=== PATIENT | male | born 1960 | race Caucasian/White ===

== ENCOUNTER 2020-01-13 08:30 | Day surgery (SDC) | payer OTHER ==
[2020-01-08 17:46] VITALS: BMI 25.0
[~2020-01-13 08:30] MED LIST: DEXAMETHASONE SOD PHOSPHATE 10 MG/ML 1 ML VIAL IV ONE; HEPARIN SODIUM,PORCINE 5,000 UNIT/ML 1 ML VIAL SQ ONE; HYDROmorphone 0.5 MG/0.5 ML SYRINGE IVP PRN; LACTATED RINGERS 1,000 ML IV SCH; LIDOCAINE 1% (10MG/ML) FOR IV START INTRADERMA PRN; MIDAZOLAM 2 MG/2 ML VIAL IV PRN; ONDANSETRON 4 MG/2 ML VIAL IVP ONE; Pre Op ABX Message 1 EACH MISC MISCELLANE ONE; fentaNYL (PF) 50 MCG/ML 2 ML AMP IVP PRN
[2020-01-13 08:48] VITALS: TEMP 97
--- NOTE | 2020-01-13 08:54 | P.GSHP ---
History of Present Illness H&P Date: 01/13/20 Chief Complaint: Abdominal wall lipoma Is a 59-year-old male developed a 5 cm lipoma in the epigastric area. Patient's lipomas firm and nontender. He presents today for excision Past Medical History Past Medical History: GERD/Reflux Additional Past Medical History / Comment(s): abdominal wall lipoma History of Any Multi-Drug Resistant Organisms: None Reported Past Surgical History: No Surgical Hx Reported Additional Past Surgical History / Comment(s): colonoscopy Past Anesthesia/Blood Transfusion Reactions: No Reported Reaction Additional Past Anesthesia/Blood Transfusion Reaction / Comment(s): HAS NEVER RECEIVED ANESTHESIA Smoking Status: Never smoker - Past Family History Mother Family Medical History: No Reported History Medications and Allergies Home Medications Medication Instructions Recorded Confirmed Type L.acidoph,Paracasei, B.lactis 1 each PO DAILY 01/08/20 01/08/20 History [Probiotic] Multivitamins, Thera [Multivitamin 1 tab PO DAILY 01/08/20 01/08/20 History (formulary)] Omeprazole [PriLOSEC] 20 mg PO [id number] 01/08/20 01/13/20 History Allergies Allergy/AdvReac Type Severity Reaction Status Date / Time Iodine and Iodide Containing Allergy Anaphylaxis Verified 01/13/20 08:42 Produc shrimp Allergy Anaphylaxis Verified 01/13/20 08:42 Surgical - Exam Vital Signs Temp Pulse Resp BP Pulse Ox 97.0 F L 64 17 155/96 99 01/13/20 08:47 01/13/20 08:47 01/13/20 08:47 01/13/20 08:47 01/13/20 08:47 - General well developed, well nourished, no distress - Eyes PERRL - ENT normal pinna - Neck no masses - Respiratory normal expansion - Cardiovascular Rhythm: regular - Abdomen Abdomen: soft, non tender - Integumentary 5 cm lipoma in the left epigastric area. Assessment and Plan Assessment: Abdominal wall lipoma. We'll perform excision.
[2020-01-13] MEDS ORDERED: SODIUM CHLORIDE 0.9% 50 ML with ceFAZolin 1,000 MG IV ONE ×4 (09:00)
[2020-01-13] MEDS ORDERED: PROPOFOL 10 MG/ML 20 ML VIAL IV ONE (09:01)
[2020-01-13] MEDS ORDERED: KETOROLAC 30 MG/ML 1 ML VIAL ONE (09:01)
[2020-01-13] MEDS ORDERED: fentaNYL (PF) 50 MCG/ML 2 ML AMP ONE (09:01)
[2020-01-13] MEDS ORDERED: MIDAZOLAM 2 MG/2 ML VIAL ONE (09:01)
[2020-01-13] MEDS ORDERED: BUPIVACAINE (PF) 0.5% 30 ML VIAL SQ ONE (09:22)
[2020-01-13 10:09] VITALS: RESP 18
--- NOTE | 2020-01-13 10:27 | P.OP ---
Date of Procedure: 01/13/20 Preoperative Diagnosis: Left upper quadrant lipoma abdominal wall Postoperative Diagnosis: Abdominal wall lipoma Procedure(s) Performed: Excision of abdominal wall lipoma Anesthesia: MAC Surgeon: Kenyon Campo Estimated Blood Loss (ml): 5 Pathology: other (Abdominal wall lipoma) Condition: stable Disposition: PACU Description of Procedure: The patient's placed on the operating table in the supine position. He received IV sedation. His abdomen was prepped and draped usual fashion. In the left upper quadrant there was a 10 cm abdominal wall lipoma. The skin was incised after local anesthetic. Using left cautery and sharp dissection the abdominal wall lipoma was dissected free. The specimens of pathology. This was measured prostate 10 x 4 x 10 cm. The wound was a few cc. Skin was closed interrupted 3-0 Monocryl suture. Dermabond was applied. Patient top she will was sent to recovery room stable condition.
[2020-01-13 10:34] VITALS: BP 148/90; PULSE 67
== END 2020-01-13 10:44 | disposition home or self-care (01) ==
LOC: OR 08:30
PROVIDERS: ATTEND Surgery
DX: D17.1 Benign lipomatous neoplasm of skin and subcutaneous tissue of trunk (principal); K21.9 Gastro-esophageal reflux disease without esophagitis; Z79.899 Other long term (current) drug therapy; Z91.048 Other nonmedicinal substance allergy status; Z91.013 Allergy to seafood
CPT/HCPCS: 88304; 22903; J2250; J0690; J3010; J1885; J2704

== ENCOUNTER 2023-09-12 19:21 | Outpatient (CLI) | payer OTHER ==
--- NOTE | 2023-09-17 23:04 | SLS ---
SLEEP STUDY STUDY PERFORMED: This is a CPAP titration report. HISTORY OF PRESENT ILLNESS: This patient was diagnosed having severe symptomatic obstructive sleep apnea with an AHI of 57.4. The patient is presenting to undergo a CPAP titration. PERTINENT PHYSICAL FINDINGS: Height is 5 feet 4 inches, weight is 173, BMI 29.7. TECHNICAL DESCRIPTION: The sleep evaluation of the patient consisted of clinical polysomnography, nocturnal respiratory battery, left and right anterior tibialis surface electromyography. The standard montage for the clinical polysomnography included the EEG, EOG, EMG, and EKG. Respiratory battery included measurements of nasal/buccal airflow, thoracic, and/or abdominal effort and intercostal surface EMG. Nocturnal oxyhemoglobin saturations were obtained by finger oximetry. Digital video and audio monitoring were done throughout the entire night to check or parasomnias. Step-mccauley titration with positive airway pressure was utilized during the study to control the respiratory events. SLEEP ARCHITECTURE: Total time in bed was 439 minutes. Total sleep time 339.5 minutes and overall sleep efficiency was 77.2%. Latency to sleep onset was 5.5 minutes. Latency to REM sleep was 63.5 minutes and the wake after sleep onset time was 96.5 minutes. The sleep architecture was characterized by 3.5% stage I, 75.8% stage II, 0% stage III, and 21.3% REM sleep. SLEEP CONTINUITY AROUSAL: The patient had a total of 22 arousals with an index of 3.9. Respiratory arousal index was 0.2. PERIODIC LIMB MOVEMENT ACTIVITY: None. CARDIAC SUMMARY: Average heart rate was 73, minimum heart rate was 69 and maximum heart rate was 81. CPAP TITRATION SUMMARY: The patient was started on a CPAP pressure of 5 cm of water and pressure was gradually increased by increments of 1 cm to reach a maximum pressure of 9 cm of water. I carefully reviewed the CPAP titration taking into account the patient's sleep stage and body position. The patient assumed various body positions. The patient was studied in supine and non-supine body position. All sleep stages were encountered, including REM. The patient has successful titration at a target pressure of 9 cm of water. No significant obstructive respiratory events were noted. This was a successful titration. PLAN: 1. Encourage weight loss. 2. Initiate CPAP therapy at a pressure of 9 cm of water with C-flex of 3 and offer the patient an AirFit F20 medium-size fullface mask. 3. Optimize sleep hygiene measures. 4. See me back in the office in 30 to 90 days to assess clinical response and compliance. He will make further adjustments on CPAP therapy accordingly. Anticipate an improvement in sleep quality while on CPAP therapy. We will continue to follow. ANAIS / JOANN: [id number] /
== END 2023-09-13 05:20 | disposition home or self-care (01) ==
LOC: 3 N SLEEP 19:21
PROVIDERS: ATTEND Internal Medicine Critical Care Medicine
DX: G47.33 Obstructive sleep apnea (adult) (pediatric) (principal); Z91.013 Allergy to seafood; Z91.041 Radiographic dye allergy status; Z88.8 Allergy status to other drugs, medicaments and biological substances
CPT/HCPCS: 95811

== ENCOUNTER → 2023-12-25 | Day surgery (SDC) | payer OTHER ==
[~2023-12-25] MED LIST changes: -DEXAMETHASONE SOD PHOSPHATE 10 MG/ML 1 ML VIAL IV ONE; -HEPARIN SODIUM,PORCINE 5,000 UNIT/ML 1 ML VIAL SQ ONE; -HYDROmorphone 0.5 MG/0.5 ML SYRINGE IVP PRN; -LIDOCAINE 1% (10MG/ML) FOR IV START INTRADERMA PRN; +LIDOCAINE 1% INJ 10MG/ML (20 ML MDV) ONE; -MIDAZOLAM 2 MG/2 ML VIAL IV PRN; -ONDANSETRON 4 MG/2 ML VIAL IVP ONE; +PROPOFOL 10 MG/ML 20 ML VIAL IV ONE; -Pre Op ABX Message 1 EACH MISC MISCELLANE ONE; -fentaNYL (PF) 50 MCG/ML 2 ML AMP IVP PRN
--- NOTE | 2023-12-25 07:31 | P.GSHP ---
History of Present Illness H&P Date: 12/25/23 CHIEF COMPLAINT: GERD and colon screen HISTORY OF PRESENT ILLNESS: The patient is a 62-year-old male who presents with gastroesophageal reflux disease and need for colon screen. Upper and lower endoscopy were offered for further evaluation and management. PAST MEDICAL HISTORY: Please see list. PAST SURGICAL HISTORY: Please see list. MEDICATIONS: Please see list. ALLERGIES: Please see list. SOCIAL HISTORY: No illicit drug use FAMILY HISTORY: No reports of Crohn disease or ulcerative colitis. REVIEW OF ORGAN SYSTEMS: CONSTITUTIONAL: No reports of fevers or chills. GI: Denies any blood in stools or constipation. PHYSICAL EXAM: VITAL SIGNS: Stable GENERAL: Well-developed pleasant in no acute distress. HEENT: No scleral icterus. Extraocular movements grossly intact. Moist buccal mucosa. NECK: Supple without lymphadenopathy. CHEST: Unlabored respirations. Equal bilateral excursions. CARDIOVASCULAR: Regular rate and rhythm. Distal 2+ pulses. ABDOMEN: Soft, nondistended. MUSCULOSKELETAL: No clubbing, cyanosis, or edema. ASSESSMENT: 1. Gastroesophageal reflux disease 2. Colon screen. PLAN: 1. Recommend proceeding with an upper and lower endoscopy Past Medical History Past Medical History: GERD/Reflux, Hyperlipidemia, Hypertension Additional Past Medical History / Comment(s): abdominal wall lipoma History of Any Multi-Drug Resistant Organisms: None Reported Past Surgical History: Hernia Repair Additional Past Surgical History / Comment(s): colonoscopy Past Anesthesia/Blood Transfusion Reactions: No Reported Reaction Additional Past Anesthesia/Blood Transfusion Reaction / Comment(s): HAS NEVER RECEIVED ANESTHESIA Smoking Status: Never smoker - Past Family History Mother Family Medical History: Dementia Father Family Medical History: Coronary Artery Disease (CAD), Diabetes Mellitus Medications and Allergies Home Medications Medication Instructions Recorded Confirmed Type Omeprazole [PriLOSEC] 20 mg PO HS 01/08/20 12/23/23 History Allergies Allergy/AdvReac Type Severity Reaction Status Date / Time Iodine and Iodide Containing Allergy Severe Anaphylaxis Verified 12/23/23 15:52 Produc shrimp Allergy Severe Anaphylaxis Verified 12/23/23 15:52
[2023-12-25 10:10] VITALS: TEMP 97.2
[2023-12-25] MEDS: LACTATED RINGERS 1,000 ML IV ONE (10:18)
--- NOTE | 2023-12-25 10:36 | P.PCN ---
Date of Procedure: 12/25/23 Description of Procedure: PREOPERATIVE DIAGNOSIS: Gastroesophageal reflux disease. POSTOPERATIVE DIAGNOSIS: Gastroesophageal reflux disease. Gastric polyps Gastritis. Diaphragmatic hiatal hernia OPERATION: Esophagogastroduodenoscopy with biopsies along esophagus, antrum and duodenum SURGEON: Rachel Gerard MD ANESTHESIA: MAC. INDICATIONS: The patient is a 62-year-old male who presents with reflux disease. Benefits and risks of the procedure were described. Informed consent was obtained. DESCRIPTION: The patient was brought into the endoscopy suite and laid in the left lateral decubitus position. An Olympus gastroscope was passed along the posterior oropharynx down to the distal esophagus where the squamocolumnar junction was encountered at 36 cm from the incisors. The stomach was entered and no bile reflux was found. Additional findings are listed below. Biopsies with cold forceps were obtained of the antrum. The first through third portion of the duodenum was examined. Retroflexion of the scope confirmed Hill grade 4 lower esophageal valve. The squamocolumnar junction demonstrated LA grade B erosive esophagitis. The stomach was desufflated. The patient tolerated the procedure well. FINDINGS: Squamocolumnar junction 36 cm from the incisors. Diaphragmatic hiatus at 41 cm. Hiatal hernia, 5 cm, sliding-type Hill grade 4 lower esophageal valve. LA grade B erosive esophagitis. Biopsies obtained Biopsies obtained of the duodenum. Gastric polyps, hyperplastic, 3 mm x 3 in gastric cardia Chronic gastritis with biopsies obtained. RECOMMENDATIONS: Recommend diaphragmatic hiatal hernia repair
--- NOTE | 2023-12-25 10:56 | P.PCN ---
Date of Procedure: 12/25/23 Description of Procedure: PREOPERATIVE DIAGNOSIS: Colonoscopy screening POSTOPERATIVE DIAGNOSIS: Personal history of colon polyps Tubular adenoma rectum Sigmoid diverticulosis Internal hemorrhoids, grade 2 OPERATION: Colonoscopy to the ileocecal valve and appendiceal orifice, cecum Colonoscopy with hot snare polypectomy SURGEON: Rachel Gerard MD. ANESTHESIA: MAC. INDICATIONS: The patient is an 62-year-old male who presents for colonoscopy screening. Benefits and risks were described and informed consent was obtained. DESCRIPTION OF PROCEDURE: The patient had undergone SuFLAVE prep. The patient had been brought into the operating room and laid in the left lateral decubitus position. After adequate intravenous sedation, the rectum was examined with 2% lidocaine jelly. The prostate was unremarkable. External hemorrhoids were encountered. The rectal tone was within normal limits. No lesions were palpated in the rectal vault. An Olympus colonoscope was advanced until the cecum, ileocecal valve and appendiceal orifice were clearly viewed. The prep was good. Sigmoid diverticulosis was encountered. Colonic polyps were found and removed. No evidence of focal colitis was found. Retroflexion of the scope demonstrated grade 2 internal hemorrhoids without active bleeding or inflammation. The colon was desufflated. The patient had tolerated the procedure well. Withdrawal time was over 6 minutes. FINDINGS: Aronchick preparation quality scale 1 (1-5) Internal hemorrhoids, grade 2 with recent inflammation External hemorrhoids, grade 3. No arteriovenous malformations. Sigmoid diverticulosis Removal of 1 polyps: - Snare polypectomy 10 cm from the anal verge, 5 mm tubulovillous adenoma No focal colitis. RECOMMENDATIONS: Repeat colonoscopy 3 years, 2026 Plan - Discharge Summary Discharge Rx Participant: No New Discharge Prescriptions: Continue Omeprazole [PriLOSEC] 20 mg PO HS Atorvastatin [Lipitor] 10 mg PO DAILY Losartan Potassium 100 mg PO Discharge Medication List Omeprazole [PriLOSEC] 20 mg PO HS 01/08/20 [History] Atorvastatin [Lipitor] 10 mg PO DAILY 12/25/23 [History] Losartan Potassium 100 mg PO 12/25/23 [History] Follow up Appointment(s)/Referral(s): Rachel Gerard MD [STAFF PHYSICIAN] - 01/28/24 10:00 am Patient Instructions/Handouts: Hiatal Hernia (DC), Colorectal Polyps (GEN), Hemorrhoids (DC) Activity/Diet/Wound Care/Special Instructions: Repeat colonoscopy 3 years, 2026 Discharge Disposition: HOME SELF-CARE
[2023-12-25 11:44] VITALS: BP 154/95; PULSE 75; RESP 16
== END | disposition home or self-care (01) ==
LOC: ORWHC2ENDO 09:29
PROVIDERS: ATTEND Surgery Plastic and Reconstructive Surgery
DX: Z12.11 Encounter for screening for malignant neoplasm of colon (principal); K62.1 Rectal polyp; K57.30 Diverticulosis of large intestine without perforation or abscess without bleeding; K21.9 Gastro-esophageal reflux disease without esophagitis; K64.1 Second degree hemorrhoids; K64.4 Residual hemorrhoidal skin tags; Z86.010 Personal history of colon polyps; K31.7 Polyp of stomach and duodenum; K44.9 Diaphragmatic hernia without obstruction or gangrene; K22.10 Ulcer of esophagus without bleeding; K29.50 Unspecified chronic gastritis without bleeding; I10 Essential (primary) hypertension; E78.5 Hyperlipidemia, unspecified; Z83.3 Family history of diabetes mellitus; Z82.49 Family history of ischemic heart disease and other diseases of the circulatory system; Z88.8 Allergy status to other drugs, medicaments and biological substances; Z91.041 Radiographic dye allergy status; Z91.013 Allergy to seafood; Z98.890 Other specified postprocedural states; Z79.899 Other long term (current) drug therapy
CPT/HCPCS: 88305; 45385; 43239; J2001; J2704

== ENCOUNTER → 2024-01-28 | Outpatient (CLI) | payer OTHER | END | disposition home or self-care (01) | LOC: LABWHC1 11:35 | PROVIDERS: ATTEND Surgery Plastic and Reconstructive Surgery | DX: I11.9 Hypertensive heart disease without heart failure (principal); I49.8 Other specified cardiac arrhythmias; I45.4 Nonspecific intraventricular block; R94.31 Abnormal electrocardiogram [ECG] [EKG] | CPT/HCPCS: 93005 ==

== ENCOUNTER 2024-05-16 21:52 | Emergency (ER) | payer OTHER ==
[2024-05-16 22:02] VITALS: TEMP 97.6
[2024-05-16 22:20] LABS: Glucose,Whole Blood 140 mg/dL (70-110)
--- NOTE | 2024-05-16 22:23 | ED ---
General Adult HPI - General Source: patient, EMS, RN notes reviewed, old records reviewed Mode of arrival: EMS <Alec Stoll - Last Filed: 05/16/24 22:18> <Dylan Damon - Last Filed: 05/17/24 00:36> - General Chief complaint: Allergic Reaction Stated complaint: allergic reaction Time Seen by Provider: 05/16/24 22:07 - History of Present Illness Initial comments: Patient is a 63-year-old male who presents emergency department complaining of allergic reaction. Patient has anaphylaxis to bee stings. Believes he was stung by a wasp in the back of his head approximately an hour to an hour and a half ago. States he began to feel like he had to have diarrhea and he did have an episode of diarrhea. Self administered a dose of his epinephrine pen as well as oral Benadryl. When patient was going to the bathroom, he had a questionable syncopal episode versus fall off the toilet. When he tried to get up again once again had a syncopal episode. Patient is having a tough time remembering the fainting versus syncopal spells that he had. Has not had an additional spell. EMS was called and brought him here for further evaluation. States he has no current symptoms of allergic reaction. Denies any mouth swelling, difficulty breathing, nausea, vomiting, abdominal pain. States he feels somewhat jittery which she feels like is from his EpiPen. Patient does have a history of chronic alcohol abuse. He is not on blood thinners. Past medical history includes hypertension, hyperlipidemia, GERD. Presents for further evaluation at this time. (Alec Stoll) - Related Data Home Medications Medication Instructions Recorded Confirmed Omeprazole [PriLOSEC] 20 mg PO HS 01/08/20 12/23/23 Atorvastatin [Lipitor] 10 mg PO DAILY 12/25/23 12/25/23 Losartan Potassium 100 mg PO 12/25/23 Previous Rx's Medication Instructions Recorded EPINEPHrine (Auto Inject) [Epipen] 0.3 mg IM ONCE PRN #2 each 05/17/24 diphenhydrAMINE [Benadryl] 25 mg PO TID PRN #21 capsule 05/17/24 predniSONE 50 mg PO DAILY #5 tab 05/17/24 Allergies Allergy/AdvReac Type Severity Reaction Status Date / Time Iodine and Iodide Containing Allergy Severe Anaphylaxis Verified 12/25/23 09:55 Produc shrimp Allergy Severe Anaphylaxis Verified 12/25/23 09:55 shellfish derived AdvReac Anaphylaxis Verified 05/16/24 22:03 venom-honey bee AdvReac Anaphylaxis Verified 05/16/24 22:03 Review of Systems ROS Other: All systems not noted in ROS Statement are negative. <JermanAlec - Last Filed: 05/16/24 22:18> ROS Other: All systems not noted in ROS Statement are negative. <Dylan Damon Angie - Last Filed: 05/17/24 00:36> ROS Statement: Those systems with pertinent positive or pertinent negative responses have been documented in the HPI. Review of Systems: CONST: Denies fever EYES: Denies blurry vision ENT: Denies nasal congestion C/V: Denies Chest pain RESP: Denies shortness of breath GI: Denies abdominal pain : Denies dysuria SKIN: Denies rash. MSK: Denies joint pain. NEURO: Denies headache (Alec Stoll) Past Medical History Past Medical History: GERD/Reflux, Hyperlipidemia, Hypertension Additional Past Medical History / Comment(s): abdominal wall lipoma History of Any Multi-Drug Resistant Organisms: None Reported Past Surgical History: Hernia Repair Additional Past Surgical History / Comment(s): colonoscopy Past Anesthesia/Blood Transfusion Reactions: No Reported Reaction Additional Past Anesthesia/Blood Transfusion Reaction / Comment(s): HAS NEVER RECEIVED ANESTHESIA Past Psychological History: No Psychological Hx Reported Smoking Status: Never smoker - Past Family History Mother Family Medical History: Dementia Father Family Medical History: Coronary Artery Disease (CAD), Diabetes Mellitus <JermanAlec - Last Filed: 05/16/24 22:18> General Exam <JermanAlec - Last Filed: 05/16/24 22:18> - General Exam Comments Initial Comments: General: Appears in no acute distress. HEAD: Normal with no signs of head trauma. Negative Calloway sign. Negative raccoon eyes. EYES: PERRLA, EOMI, conjunctiva normal, no discharge. ENT: Hearing grossly intact, normal oropharynx. No stridor auscultated. No floor the mouth swelling. No tongue swelling. Uvula is midline. RESPIRATORY: Clear breath sounds bilaterally. No wheezes, rales, or rhonchi. No respiratory distress. No hypoxia. C/V: Regular rate and rhythm. S1 and S2 auscultated, no edema, peripheral pulses 2+ and intact throughout ABD: Abd is soft, nontender, nondistended EXT: Normal range of motion, no obvious deformity. No midline cervical, thoracic, lumbar spine tenderness to palpation. Pelvis is stable. SKIN: No rashes or lesions observed on exposed skin.Posterior scalp shows no ary dence of bee sting or infection. NEURO: Alert and oriented x 4. GCS of 15. (Alec Stoll) Course Vital Signs 05/16/24 05/16/24 21:59 23:52 Temperature 97.6 F Pulse Rate 99 93 Respiratory 18 15 Rate Blood Pressure 135/86 116/83 O2 Sat by Pulse 96 95 Oximetry Medical Decision Making - EKG Data -: EKG Interpreted by Me <Alec Stoll - Last Filed: 05/16/24 22:18> - Lab Data Result diagrams: 05/16/24 22:12 05/16/24 22:12 <Dylan Damon - Last Filed: 05/17/24 00:36> - Medical Decision Making Was pt. sent in by a medical professional or institution (, PA, [employer], urgent care, hospital, or jail...) When possible be specific @ -No Did you speak to anyone other than the patient for history (EMS, parent, family, police, friend...)? What history was obtained from this source @ -Spoke with patient's who was able to provide more details about what she saw when patient fell versus syncopized. States patient is currently at baseline. Did you review nursing and triage notes (agree or disagree)? Why? @ -I reviewed and agree with nursing and triage notes Were old charts reviewed (outside hosp., previous admission, EMS record, old EKG, old radiological studies, urgent care reports/EKG's, jail records)? Report findings @ -No old charts were reviewed Differential Diagnosis (chest pain, altered mental status, abdominal pain women, abdominal pain men, vaginal bleeding, weakness, fever, dyspnea, syncope, headache, dizziness, GI bleed, back pain, seizure, CVA, palpatations, mental health, musculoskeletal)? @ -Anaphylaxis, allergic reaction, syncope, alcohol intoxication, intracranial injury. This list is not all inclusive. EKG interpreted by me (3pts min.). @ -As above X-rays interpreted by me (1pt min.). @ -Pending CT interpreted by me (1pt min.). @ -Pending U/S interpreted by me (1pt. min.). @ -None done What testing was considered but not performed or refused? (CT, X-rays, U/S, labs)? Why? @ -None What meds were considered but not given or refused? Why? @ -None Did you discuss the management of the patient with other professionals (professionals i.e. , PA, [employer], lab, RT, psych nurse, social worker masters, traffic and transport planner, teacher, legal compliance officer, watch caser)? Give summary @ -No Was smoking cessation discussed for >3mins.? @ -No Was critical care preformed (if so, how long)? @ -No Were there social determinants of health that impacted care today? How? (Homelessness, low income, unemployed, alcoholism, drug addiction, transportation, low edu. Level, literacy, decrease access to med. care, fci, rehab)? @ -No Was there de-escalation of care discussed even if they declined (Discuss DNR or withdrawal of care, Hospice)? DNR status @ -No What co-morbidities impacted this encounter? (DM, HTN, Smoking, COPD, CAD, Cancer, CVA, ARF, Chemo, Hep., AIDS, mental health diagnosis, sleep apnea, morbid obesity)? @ -Anaphylaxis to bee stings, chronic alcohol abuse Was patient admitted / discharged? Hospital course, mention meds given and route, prescriptions, significant lab abnormalities, going to OR and other pertinent info. @ -Patient presents emergency department for allergic reaction to wasp or bee sting to the back of the head. Took his own epinephrine autoinjector at home. After receiving that and Benadryl, patient felt faint and had 2 episodes of falling versus syncope. Patient is a poor historian regarding these. Patient drinks alcohol chronically on a daily basis. Presents for further evaluation. Currently has no acute complaints. Is feeling improved. Vital signs are within acceptable limits. Will obtain CT brain, chest x-ray, EKG as well as labs. Patient was in agreement this plan. He will be symptomatically treated with IV fluids, IV steroids, IV Pepcid as he is already received Benadryl as well as the epinephrine autoinjector from himself. He was in agreement this plan. EKG shows no signs of acute ischemia. Imaging is pending. Labs are pending. Patient signed out to Dr. Damon pending results of workup. Undiagnosed new problem with uncertain prognosis? @ -No Drug Therapy requiring intensive monitoring for toxicity (Heparin, Nitro, Insulin, Cardizem)? @ -No Were any procedures done? @ -No (Alec Stoll) Patient care signed out at shift change awaiting reevaluation, laboratory testing and imaging. Workup is unremarkable and the patient is resting comfortably. No signs of acute distress. Stable for discharge at this time. (Dylan Damon) - Lab Data Lab Results 05/16/24 05/16/24 05/16/24 Range/Units 22:12 22:12 22:12 WBC 13.7 H (3.8-10.6) k/uL RBC 5.13 (4.30-5.90) m/uL Hgb 15.9 (13.0-17.5) gm/dL Hct 49.4 (39.0-53.0) % MCV 96.3 (80.0-100.0) fL MCH 31.0 (25.0-35.0) pg MCHC 32.2 (31.0-37.0) g/dL RDW 12.7 (11.5-15.5) % Plt Count 336 (150-450) k/uL MPV 7.8 Neutrophils % 64 % Lymphocytes % 29 % Monocytes % 4 % Eosinophils % 1 % Basophils % 1 % Neutrophils # 8.7 H (1.3-7.7) k/uL Lymphocytes # 4.0 (1.0-4.8) k/uL Monocytes # 0.5 (0-1.0) k/uL Eosinophils # 0.2 (0-0.7) k/uL Basophils # 0.1 (0-0.2) k/uL PT 10.7 (10.0-12.5) sec INR 1.0 (<1.2) APTT 19.5 L (22.0-30.0) sec Sodium 139 (137-145) mmol/L Potassium 4.1 (3.5-5.1) mmol/L Chloride 109 H (98-107) mmol/L Carbon Dioxide 15 L (22-30) mmol/L Anion Gap 15 mmol/L BUN 15 (9-20) mg/dL Creatinine 1.19 (0.66-1.25) mg/dL Est GFR (CKD-EPI)AfAm 76 (>60 ml/min/1.73 sqM) Est GFR (CKD-EPI)NonAf 66 (>60 ml/min/1.73 sqM) Glucose 150 H (74-99) mg/dL POC Glucose (mg/dL) (70-110) mg/dL POC Glu Code Inspector ID Calcium 9.4 (8.4-10.2) mg/dL Magnesium 1.9 (1.6-2.3) mg/dL Total Bilirubin 0.7 (0.2-1.3) mg/dL AST 35 (17-59) U/L ALT 23 (4-49) U/L Alkaline Phosphatase 70 (38-126) U/L Total Protein 7.1 (6.3-8.2) g/dL Albumin 4.3 (3.5-5.0) g/dL Serum Alcohol 168 mg/dL 05/16/24 Range/Units 22:18 WBC (3.8-10.6) k/uL RBC (4.30-5.90) m/uL Hgb (13.0-17.5) gm/dL Hct (39.0-53.0) % MCV (80.0-100.0) fL MCH (25.0-35.0) pg MCHC (31.0-37.0) g/dL RDW (11.5-15.5) % Plt Count (150-450) k/uL MPV Neutrophils % % Lymphocytes % % Monocytes % % Eosinophils % % Basophils % % Neutrophils # (1.3-7.7) k/uL Lymphocytes # (1.0-4.8) k/uL Monocytes # (0-1.0) k/uL Eosinophils # (0-0.7) k/uL Basophils # (0-0.2) k/uL PT (10.0-12.5) sec INR (<1.2) APTT (22.0-30.0) sec Sodium (137-145) mmol/L Potassium (3.5-5.1) mmol/L Chloride (98-107) mmol/L Carbon Dioxide (22-30) mmol/L Anion Gap mmol/L BUN (9-20) mg/dL Creatinine (0.66-1.25) mg/dL Est GFR (CKD-EPI)AfAm (>60 ml/min/1.73 sqM) Est GFR (CKD-EPI)NonAf (>60 ml/min/1.73 sqM) Glucose (74-99) mg/dL POC Glucose (mg/dL) 140 H (70-110) mg/dL POC Glu Code Inspector ID Arlette Davidson Calcium (8.4-10.2) mg/dL Magnesium (1.6-2.3) mg/dL Total Bilirubin (0.2-1.3) mg/dL AST (17-59) U/L ALT (4-49) U/L Alkaline Phosphatase (38-126) U/L Total Protein (6.3-8.2) g/dL Albumin (3.5-5.0) g/dL Serum Alcohol mg/dL - EKG Data EKG Comments: 12-lead Electrocardiogram Interpretation Note EKG was reviewed and interpreted by myself. 12-lead ECG performed at 2209 is interpreted by me as revealing sinus tachycardia at a rate of 101 beats per minute. [place] is normal. [place] interval is 175 ms, QRS duration is 86 ms, QTc is 405 ms.. There were no ST or T wave abnormalities to suggest myocardial ischemia or injury. R wave progression across the precordium was satisfactory. By my interpretation this EKG is non-diagnostic for acute ischemia. (Alec Stoll) Disposition <Alec Stoll - Last Filed: 05/16/24 22:18> Is patient prescribed a controlled substance at d/c from ED?: No Time of Disposition: 00:35 <Dylan Damon - Last Filed: 05/17/24 00:36> Clinical Impression: Allergic reaction, Anaphylaxis Disposition: HOME SELF-CARE Condition: Fair Instructions (If sedation given, give patient instructions): Anaphylaxis (ED) Prescriptions: diphenhydrAMINE [Benadryl] 25 mg PO TID PRN #21 capsule PRN Reason: Allergic Reaction EPINEPHrine (Auto Inject) [Epipen] 0.3 mg IM ONCE PRN #2 each PRN Reason: Anaphylaxis predniSONE 50 mg PO DAILY #5 tab Referrals: Ar,Louis, DO [Primary Care Provider] - 1-2 days
[2024-05-16 22:36] LABS: Basophils # (A) 0.1 k/uL (0-0.2); Basophils % (A) 1 %; Eosinophils # (A) 0.2 k/uL (0-0.7); Eosinophils % (A) 1 %; HCT 49.4 % (39.0-53.0); HGB 15.9 gm/dL (13.0-17.5); Lymphocytes % (A) 29 %; MCHC 32.2 g/dL (31.0-37.0); MCV 96.3 fL (80.0-100.0); Mean Platelet Volume 7.8; Monocytes # (A) 0.5 k/uL (0-1.0); Monocytes % (A) 4 %; Neutrophils # (A) 8.7 k/uL (1.3-7.7); Neutrophils % (A) 64 %; Platelet Count 336 k/uL (150-450); RBC 5.13 m/uL (4.30-5.90); RDW 12.7 % (11.5-15.5); WBC 13.7 k/uL (3.8-10.6)
[2024-05-16] MEDS: SODIUM CHLORIDE 0.9% 1,000 ML IV STA (22:40)
[2024-05-16] MEDS: methylPREDNISolone SOD SUCCI 125 MG/2 ML VIAL IV STA (22:40)
[2024-05-16] MEDS: FAMOTIDINE 20 MG/2 ML VIAL IV STA (22:41)
[2024-05-16 23:07] LABS: Prothrombin Time 10.7 sec (10.0-12.5)
[2024-05-16 23:18] LABS: Partial Thromboplastin Time 19.5 sec (22.0-30.0)
[2024-05-17 00:01] LABS: ALT 23 U/L (4-49); AST 35 U/L (17-59); African American GFR (CKD) 76 (>60 ml/min/1.73 sqM); Albumin 4.3 g/dL (3.5-5.0); Alkaline Phosphatase 70 U/L (38-126); Anion Gap 15 mmol/L; Blood Urea Nitrogen 15 mg/dL (9-20); Calcium 9.4 mg/dL (8.4-10.2); Carbon Dioxide 15 mmol/L (22-30); Chloride 109 mmol/L (98-107); Glucose 150 mg/dL (74-99); Magnesium 1.9 mg/dL (1.6-2.3); Non-African American GFR(CKD) 66 (>60 ml/min/1.73 sqM); Potassium 4.1 mmol/L (3.5-5.1); Sodium 139 mmol/L (137-145); Total Bilirubin 0.7 mg/dL (0.2-1.3); Total Protein 7.1 g/dL (6.3-8.2)
[2024-05-17 00:03] LABS: Alcohol 168 mg/dL
--- NOTE | 2024-05-17 00:04 | CT ---
EXAM: CT Head Without Intravenous Contrast CLINICAL HISTORY: ITS.REASON CT Reason: syncope TECHNIQUE: Axial computed tomography images of the head/brain without intravenous contrast. CTDI is 49.1 mGy and DLP is 1170.4 mGy-cm. This CT exam was performed using one or more of the following dose reduction techniques: automated exposure control, adjustment of the mA and/or kV according to patient size, and/or use of iterative reconstruction technique. COMPARISON: No prior exams are available for comparison. FINDINGS: No acute intracranial hemorrhage. No midline shift or mass effect. The territorial bai-white matter differentiation is maintained throughout. The ventricles and sulci are commensurate with age. The visualized orbits appear grossly unremarkable. The calvarium is intact. The visualized paranasal sinuses and mastoid air cells are grossly clear. IMPRESSION: No acute intracranial hemorrhage, midline shift, or mass effect.
--- NOTE | 2024-05-17 00:23 | XR ---
EXAM: XR Chest, 2 Views CLINICAL HISTORY: ITS.REASON XR Reason: syncope TECHNIQUE: Frontal and lateral views of the chest. COMPARISON: No relevant prior studies available. FINDINGS: Lungs: Unremarkable. No consolidation. Pleural space: Unremarkable. No pneumothorax. Heart: Unremarkable. No cardiomegaly. Mediastinum: Unremarkable. Normal mediastinal contour. Bones/joints: Unremarkable. No acute fracture. IMPRESSION: No consolidation.
[2024-05-17 00:49] VITALS: BP 113/79; PULSE 98; RESP 16
== END 2024-05-17 00:49 | disposition home or self-care (01) ==
LOC: EC 21:52
DX: T78.2XXA Anaphylactic shock, unspecified, initial encounter (principal); Z91.030 Bee allergy status; Z91.041 Radiographic dye allergy status; Z88.8 Allergy status to other drugs, medicaments and biological substances
CPT/HCPCS: 36415; 93005; 80053; 83735; 85025; 85610; 85730; 80320; 71046; 70450; 99284; 96374; 96375; 96361; J3490; J2919